=== PATIENT | female | born 1975 | race Caucasian/White ===

== ENCOUNTER → 2017-01-13 | Outpatient (CLI) | payer BC ==
[2017-01-13 09:45] LABS: BASOPHILS # (AUTO) 0.1 X10^3/uL (0.0-0.1); EOSINOPHILS # (AUTO) 0.1 x10^3/uL (0.0-0.2); HEMATOCRIT 40.9 % (36.0-47.0); HEMOGLOBIN 13.6 g/dL (12.0-16.0); LYMPHOCYTES # (AUTO) 2.4 X10^3/uL (1.3-2.9); LYMPHOCYTES % (AUTO) 42.2 % (21.0-51.0); MEAN CORPUSCULAR HGB CONC 33.2 g/dL (33.0-35.0); MEAN CORPUSCULAR VOLUME 90.4 fL (80.0-100.0); MEAN PLATELET VOLUME 9.2 fL (7.4-11.0); MONOCYTES # (AUTO) 0.4 x10^3/uL (0.3-0.8); MONOCYTES % (AUTO) 6.1 % (0.0-13.0); NEUTROPHILS # (AUTO) 2.8 x10^3/uL (2.2-4.8); NEUTROPHILS % (AUTO) 48.7 % (42.0-75.0); PLATELET COUNT 292 X10^3/uL (150.0-450.0); RED BLOOD COUNT 4.53 X10^6/uL (3.5-5.4); WHITE BLOOD COUNT 5.8 X10^3/uL (3.6-10.0)
[2017-01-13 10:09] LABS: ALANINE AMINOTRANSFERASE 31 Units/L (12-78); ALBUMIN 3.9 g/dL (3.4-5.0); ALKALINE PHOSPHATASE 69 Units/L (46-116); ASPARTATE AMINO TRANSFERASE 18 Units/L (15-37); BLOOD UREA NITROGEN 10 mg/dL (7-18); CALCIUM 8.9 mg/dL (8.5-10.1); CARBON DIOXIDE 29.5 mmol/L (21-32); CHLORIDE 108 mmol/L (98-107); CHOL/HDL RATIO 4.6 (0.0-5.0); CHOLESTEROL 224 mg/dL (0-200); CREATININE 0.98 mg/dL (0.55-1.02); GLUCOSE 94 mg/dL (65-99); HDL CHOLESTEROL 49 mg/dL (40-60); SODIUM 144 mmol/L (136-145); T4 (THYROXINE) 9.9 ug/dL (4.7-13.3); TOTAL PROTEIN 7.4 g/dL (6.4-8.2); TRIGLYCERIDES 117 mg/dL (0-150); TSH (3RD GENERATION) 1.653 uIU/mL (0.358-3.74); eGFR BLACK RACES > 60 (>60); eGFR NON BLACK RACES > 60 (>60)
[2017-01-18 07:18] LABS: T3 TOTAL 117 ng/dL (80-200)
[2017-01-18 07:19] LABS: VITAMIN D 25 OH 50 ng/mL (30-80)
== END ==
LOC: LAB 09:10
PROVIDERS: ATTEND Nurse Practitioner Family
DX: E03.8 Other specified hypothyroidism (principal); E56.8 Deficiency of other vitamins; Z91.89 Other specified personal risk factors, not elsewhere classified
CPT/HCPCS: 36415; 80053; 80061; 82306; 84436; 84443; 84480; 85025

== ENCOUNTER → 2017-02-12 | Outpatient (CLI) | payer BC ==
[2017-02-12 09:51] LABS: C-REACTIVE PROTEIN 2.8 mg/L (0-3.0); URIC ACID 3.6 mg/dL (2.6-6.0)
--- NOTE | 2017-02-12 10:25 | RAD ---
HISTORY: Right lateral foot pain, nontraumatic Study: Right foot three view Comparison: None Findings: No acute cortical disruption or dislocation can be identified. No significant soft tissue swelling or injury can be seen. The visualized portions of the talus and calcaneus are unremarkable. The jd nts are normal. IMPRESSION: 1. Negative exam. Reported By:
== END ==
LOC: RAD 09:06
PROVIDERS: ATTEND Nurse Practitioner Family
DX: M79.671 Pain in right foot (principal); M79.672 Pain in left foot
CPT/HCPCS: 36415; 73630; 84550; 85652; 86140

== ENCOUNTER 2021-06-12 11:40 | Inpatient (IN) ==
[2021-06-12 11:46] VITALS: BMI 29.2
[2021-06-12] MEDS ORDERED: ZOFRAN INJ 4 MG VIAL IVP ONE (12:23)
[2021-06-12] MEDS ORDERED: NS 1000 ML 1,000 ML IV ONE (12:23)
--- NOTE | 2021-06-12 12:23 | DR.GENAD ---
HPI Time Seen Time Seen by Provider: 06/12/21 11:54 PCP Primary Care Physician: [facility] Complaint/Symptoms Chief Complaint Doctors Comments: 46 y/o female presents with facial swelling. Started wtih a pimple of the R face/cheek region. Steadily worsened. Having increased swelling of the right cheek. + constant pain, dull, does not radiate. Nothing makes it better, nothing makes it worse. No fever, chills. Having sinus congestion, pressure. Has been nauseous. No vomiting or diarrhea. No cough. Having some body aches. Chief Complaint:: Pt c/o right sided facial swelling. She states she had a pimple on that side of her face. She also c/o bodyaches and sinus pressure. Self Treatment fo Chief Complaint: Goody Powder COVID-19 Coronavirus risk:travel/contact w/high risk person: No Has patient experienced Coronavirus symptoms: No Nurses notes reviewed Nurses Notes Review: Yes Source History Provided: Patient Mode of Arrival Mode of Arrival: Ambulatory Timing Onset of Chief Complaint: 06/11/21 PMH PMH Past Medical History: Yes Past Medical History: Anemia Past Medical History Comment: Fibromyalgia Past Surgical History: Yes Surgical History: , Cholecystectomy, [employer] Surgery and Hysterectomy Family History History of Family Medical Conditions: Yes Family Medical History: Diabetes Mellitus and Hypertension Social History Does patient currently use any type of tobacco product: No Have you used tobacco products in the last 12 months: No Type of Tobacco Use: None Does any household member use tobacco: No Alcohol Use: None Do you use any recreational Drugs:: No Lives With: Family Lives Where: Home Travel Risk Coronavirus risk:travel/contact w/high risk person: No Has patient experienced Coronavirus symptoms: No Infectious screening In the last 2 months have you had wt loss of >10#?: NO Have you had fever, night sweats or hemotysis?: No Have you traveled outside the country in the last 6 months?: No Isolation: Standard ROS Review of Systems Constitutional: No Symptoms Reported Eyes: No Symptoms Reported ENTM: Nose Congestion; negative Mouth Pain and Tooth/Dental Pain Respiratoy: No Symptoms Reported Cardiovascular: No Symptoms Reported Gastrointestinal/Abdominal: No Symptoms Reported Genitourinary: No Symptoms Reported Neurological: No Symptoms Reported Musculoskeletal: No Symptoms Reported Integumentary: No Symptoms Reported Hematologic/Lymphatic: No Symptoms Reported Endocrine: No Symptoms Reported Psychiatric: No Symptoms Reported All Other Systems: Reviewed and Negative PE Vital Signs Vitals: Temperature 97.9 F Pulse Rate 127 Respiratory Rate 16 Blood Pressure 131/75 O2 Sat by Pulse Oximetry 100 General Limitations: No Limitations General Appearance: Alert and In No Apparent Distress Eyes Eye exam: Normal Appearance, PERRL and EOMI ENT ENT Exam: Normal Oropharynx, Mucous Membranes Moist, TM's Normal Bilaterally and Other (+ right malar swelling, with tenderness, with 3 cm round induration of center, minimal erythema. No fluctuance.) Nose Exam: Normal Nose Exam Throat Exam: Normal Inspection Neck Neck Exam: Normal Inspection and Full ROM; negative Meningismus Chest Chest Inspection: Normal Inspection Respiratory Respiratory Exam: Normal Lung Sounds Bilat; negative Accessory Muscle Use and Respiratory Distress Respiratory Exam: Bilateral: Clear to Auscultation Cardiovascular Cardiovascular Exam: Regular Rate, Normal Rhythm and Normal Heart Sounds Abdominal Exam Abdominal Exam: Normal Inspection, Normal Bowel Sounds and Soft; negative Tenderness Extremities Extremities Exam: Normal Inspection and Full ROM; negative Tenderness and Edema Back Back Exam: Normal Inspection and Full ROM Neurologic Neurological Exam: Alert, Oriented X3 and CN II-XII Intact; negative Motor Sensory Deficit Psychiatric Psychiatric Exam: Normal Affect Skin Skin Exam: Warm and Dry MDM Differential Diagnosis Differential Diagnosis: facial cellulitis/abscess, dental abscess COURSE Treatment Treatment: 46 y.o female with rapidly worsening R facial swelling. W/u initiated. Labs overall acceptable, slight bump in WBC. CT of facial region with IV contrast shows R facial cellulitis, no abscess. Discussed with Dr. Gustafson, covering hospitalist, accepts the admission. ROR Labs Reviewed Laboratory Results Reviewed?: Yes Result Diagrams: 06/12/21 12:43 06/12/21 12:43 Laboratory: WBC 11.6 X10^3/uL (3.6-10.0) H 06/12/21 12:43 RBC 4.38 X10^6/uL (3.5-5.4) 06/12/21 12:43 Hgb 13.1 g/dL (12.0-16.0) 06/12/21 12:43 Hct 39.1 % (36.0-47.0) 06/12/21 12:43 MCV 89.3 fL (80.0-100.0) 06/12/21 12:43 MCH 30.0 pg (27.0-34.0) 06/12/21 12:43 MCHC 33.6 g/dL (33.0-35.0) 06/12/21 12:43 RDW 14.1 % (11.6-16.5) 06/12/21 12:43 Plt Count 273 X10^3/uL (150.0-450.0) 06/12/21 12:43 MPV 8.3 fL (7.4-11.0) 06/12/21 12:43 Neut % (Auto) 75.4 % (42.0-75.0) H 06/12/21 12:43 Lymph % (Auto) 16.8 % (21.0-51.0) L 06/12/21 12:43 [place] % (Auto) 6.7 % (0.0-13.0) 06/12/21 12:43 Eos % (Auto) 0.5 % (0.9-2.9) L 06/12/21 12:43 Baso % (Auto) 0.6 % (0.2-1.0) 06/12/21 12:43 Neut # (Auto) 8.7 x10^3/uL (2.2-4.8) H 06/12/21 12:43 Lymph # (Auto) 1.9 X10^3/uL (1.3-2.9) 06/12/21 12:43 [place] # (Auto) 0.8 x10^3/uL (0.3-0.8) 06/12/21 12:43 Eos # (Auto) 0.1 x10^3/uL (0.0-0.2) 06/12/21 12:43 Baso # (Auto) 0.1 X10^3/uL (0.0-0.1) 06/12/21 12:43 Absolute Nucleated RBC 0.0 /100WBC 06/12/21 12:43 Sodium 143 mmol/L (136-145) 06/12/21 12:43 Corrected Sodium TNP 06/12/21 12:43 Potassium 3.5 mmol/L (3.5-5.1) 06/12/21 12:43 Chloride 107 mmol/L (98-107) 06/12/21 12:43 Carbon Dioxide 26.9 mmol/L (21-32) 06/12/21 12:43 BUN 6 mg/dL (7-18) L 06/12/21 12:43 Creatinine 0.90 mg/dL (0.55-1.02) 06/12/21 12:43 Est GFR (MDRD) Af Amer > 60 (>60) 06/12/21 12:43 Est GFR (MDRD) Non-Af > 60 (>60) 06/12/21 12:43 Glucose 98 mg/dL (65-99) 06/12/21 12:43 Lactic Acid 1.0 mmol/L (0.4-2.0) 06/12/21 12:43 Calcium 8.8 mg/dL (8.5-10.1) 06/12/21 12:43 Corrected Calcium TNP 06/12/21 12:43 Total Bilirubin 0.20 mg/dL (0.2-1.0) 06/12/21 12:43 AST 18 Units/L (15-37) 06/12/21 12:43 ALT 28 Units/L (12-78) 06/12/21 12:43 Alkaline Phosphatase 84 Units/L (46-116) 06/12/21 12:43 Total Protein 7.0 g/dL (6.4-8.2) 06/12/21 12:43 Albumin 3.4 g/dL (3.4-5.0) 06/12/21 12:43 Globulin 3.6 g/dL (2.5-4.5) 06/12/21 12:43 Albumin/Globulin Ratio 0.9 Ratio (1.1-2.1) L 06/12/21 12:43 XRAY XRAY Interpreted by: Radiologist X-ray Results: Facial CT -+ R facial cellulitis Opioid Opioid Risk Tool Age (Boyd box if 16-45): No History of Preadolescent Sexual Abuse: No Total: 0 Total Score Risk Category: Low Risk Copyright: Keagan LIN predicting aberrant behaviors Diagnosis Discharge Problem: Cellulitis of face
[2021-06-12] MEDS ORDERED: ZOSYN VIAL 3.375 GRAMS 3.375 G in NS 100 ML IV + SPIKE MINIBAG* 100 ML IV ONE (12:25)
[2021-06-12] MEDS ORDERED: NS 100 ML IV + SPIKE MINIBAG* 100 ML IV ONE (12:33)
[2021-06-12] MEDS ORDERED: ZOFRAN INJ 4 MG VIAL ONE (12:33)
[2021-06-12] MEDS ORDERED: ZOSYN VIAL 3.375 GRAMS IV ONE (12:33)
[2021-06-12] MEDS ORDERED: NS 1000 ML 1,000 ML ONE (12:34)
[2021-06-12 13:16] LABS: BASOPHILS # (AUTO) 0.1 X10^3/uL (0.0-0.1); BASOPHILS % (AUTO) 0.6 % (0.2-1.0); EOSINOPHILS # (AUTO) 0.1 x10^3/uL (0.0-0.2); EOSINOPHILS % (AUTO) 0.5 % (0.9-2.9); HEMATOCRIT 39.1 % (36.0-47.0); HEMOGLOBIN 13.1 g/dL (12.0-16.0); LYMPHOCYTES # (AUTO) 1.9 X10^3/uL (1.3-2.9); LYMPHOCYTES % (AUTO) 16.8 % (21.0-51.0); MEAN CORPUSCULAR HGB CONC 33.6 g/dL (33.0-35.0); MEAN CORPUSCULAR VOLUME 89.3 fL (80.0-100.0); MEAN PLATELET VOLUME 8.3 fL (7.4-11.0); MONOCYTES # (AUTO) 0.8 x10^3/uL (0.3-0.8); MONOCYTES % (AUTO) 6.7 % (0.0-13.0); NEUTROPHILS # (AUTO) 8.7 x10^3/uL (2.2-4.8); NEUTROPHILS % (AUTO) 75.4 % (42.0-75.0); PLATELET COUNT 273 X10^3/uL (150.0-450.0); RED BLOOD COUNT 4.38 X10^6/uL (3.5-5.4); RED CELL DISTRIBUTION WIDTH 14.1 % (11.6-16.5); WHITE BLOOD COUNT 11.6 X10^3/uL (3.6-10.0)
[2021-06-12 13:43] LABS: ALANINE AMINOTRANSFERASE 28 Units/L (12-78); ALBUMIN 3.4 g/dL (3.4-5.0); ALKALINE PHOSPHATASE 84 Units/L (46-116); ASPARTATE AMINO TRANSFERASE 18 Units/L (15-37); BLOOD UREA NITROGEN 6 mg/dL (7-18); CALCIUM 8.8 mg/dL (8.5-10.1); CARBON DIOXIDE 26.9 mmol/L (21-32); CHLORIDE 107 mmol/L (98-107); SODIUM 143 mmol/L (136-145); eGFR NON BLACK RACES > 60 (>60)
[2021-06-12] MEDS ORDERED: MORPHINE SULFATE INJ 4 MG IVP ONE (13:57)
[2021-06-12] MEDS ORDERED: MORPHINE SULFATE INJ 4 MG ONE (13:59)
--- NOTE | 2021-06-12 14:02 | CT ---
HISTORYRIGHT CHEEK SWELLING/ TENDERNESS, C/W CELLULITISSTUDYFACIAL WITH CONCOMPARISONNone.TECHNIQUEMultiple axial images of the facial structures were obtained from the mandible to superior portions of the orbits. Sagital and Coronal reformats were created. Dose reduction techniques including Automated Exposure Control (AEC) and adjustment of mA and kV were utilized. Exam performed with contrast.FINDINGSStreak artifact from dental amalgam limits evaluation.Facial bones: No acute facial bone fracture.Paranasal sinuses:Clear.Globes:Intact. No retrobulbar swelling or hematoma.Soft tissues:There is moderate soft tissue swelling to the right cheek image 32 series 9. No abscess is identified. The nasal cavity, nasopharynx, oropharynx, oral cavity, parapharyngeal space, and retropharyngeal space appear benign. Visualized hypopharynx and larynx appear benign. No pathologic adenopathy. The parotid glands and submandibular glands appear normal. There is thickening of the right platysma muscle.IMPRESSIONModerate subcutaneous fat stranding in the right cheek consistent with cellulitis. No identified soft tissue abscess. No retrobulbar or fat stranding.Electronically signed by: Ross Faust (Jun 12, 2021 14:00:20)
[2021-06-12] MEDS: ZOSYN VIAL 3.375 GRAMS 3.375 G in NS 100 ML IV + SPIKE MINIBAG* 100 ML IV SCH ×2 (17:03→21:20)
[2021-06-12] MEDS: NS 1000 ML 1,000 ML IV SCH (17:35)
[2021-06-12] MEDS: MORPHINE SULFATE INJ 4 MG IVP PRN (17:55)
[2021-06-12] MEDS: DESYREL PO SCH (20:49)
[2021-06-12] MEDS ORDERED: TORADOL 30 MG VIAL IVP ONE (21:14)
[2021-06-12] MEDS: ZYVOX 600MG IV 600 MG/300 ML BAG IV SCH (22:31)
[2021-06-13] MEDS: MORPHINE SULFATE INJ 4 MG IVP PRN (05:10)
[2021-06-13] MEDS: NS 1000 ML 1,000 ML IV SCH ×4 (05:10→21:11)
[2021-06-13] MEDS: ZOSYN VIAL 4.5 GRAMS 4.5 G in NS 100 ML IV + SPIKE MINIBAG* 100 ML IV SCH ×3 (05:10→22:10)
[2021-06-13 06:13] LABS: BASOPHILS % (AUTO) 0.2 % (0.2-1.0); EOSINOPHILS # (AUTO) 0.1 x10^3/uL (0.0-0.2); EOSINOPHILS % (AUTO) 0.9 % (0.9-2.9); HEMOGLOBIN 12.5 g/dL (12.0-16.0); LYMPHOCYTES # (AUTO) 2.2 X10^3/uL (1.3-2.9); LYMPHOCYTES % (AUTO) 17.5 % (21.0-51.0); MEAN CORPUSCULAR HEMOGLOBIN 30.1 pg (27.0-34.0); MEAN CORPUSCULAR HGB CONC 33.8 g/dL (33.0-35.0); MEAN CORPUSCULAR VOLUME 89.1 fL (80.0-100.0); MEAN PLATELET VOLUME 8.3 fL (7.4-11.0); MONOCYTES # (AUTO) 0.9 x10^3/uL (0.3-0.8); MONOCYTES % (AUTO) 7.2 % (0.0-13.0); NEUTROPHILS # (AUTO) 9.4 x10^3/uL (2.2-4.8); NEUTROPHILS % (AUTO) 74.2 % (42.0-75.0); PLATELET COUNT 265 X10^3/uL (150.0-450.0); RED BLOOD COUNT 4.15 X10^6/uL (3.5-5.4); RED CELL DISTRIBUTION WIDTH 14.2 % (11.6-16.5); WHITE BLOOD COUNT 12.7 X10^3/uL (3.6-10.0)
[2021-06-13 06:28] LABS: ALANINE AMINOTRANSFERASE 78 Units/L (12-78); ALKALINE PHOSPHATASE 109 Units/L (46-116); ASPARTATE AMINO TRANSFERASE 58 Units/L (15-37); BLOOD UREA NITROGEN 6 mg/dL (7-18); CALCIUM 8.5 mg/dL (8.5-10.1); CARBON DIOXIDE 27.9 mmol/L (21-32); CHLORIDE 106 mmol/L (98-107); COR CA(FOR HYPOALB) 9.3 mg/dL (8.5-10.1); CREATININE 0.89 mg/dL (0.55-1.02); SODIUM 142 mmol/L (136-145); TOTAL PROTEIN 6.4 g/dL (6.4-8.2); eGFR NON BLACK RACES > 60 (>60)
[2021-06-13] MEDS ORDERED: K-RIDER 10 MEQ/NS 100 ML 10 MEQ/100 ML BAG IV PRN (06:47)
[2021-06-13] MEDS ORDERED: KLOR-CON PO PRN (06:47)
[2021-06-13] MEDS ORDERED: POTASSIUM CHL 40 MEQ/NS 0.45% 500 ML IV PRN (06:47)
[2021-06-13] MEDS ORDERED: MICRO K EXTEN CAP 10 MEQ PO PRN (06:47)
[2021-06-13] MEDS ORDERED: POTASSIUM CHL 60 MEQ/NS 0.45% 500 ML IV PRN (06:47)
[2021-06-13] MEDS ORDERED: K-DUR TAB 20 MEQ PO PRN (06:47)
[2021-06-13] MEDS ORDERED: POTASSIUM CHLORIDE LIQ 20 MEQ UDC PO PRN (06:47)
[2021-06-13] MEDS: CYMBALTA PO SCH (08:53)
[2021-06-13] MEDS: PriLOSEC PO SCH (08:53)
[2021-06-13] MEDS: ZYVOX 600MG IV 600 MG/300 ML BAG IV SCH ×2 (08:53→21:11)
[2021-06-13] MEDS: MAGNESIUM SULFATE 1 GRAM/100 mL PREMIX 1 G/100 ML BAG IV PRN ×2 (10:15→11:24)
[2021-06-13] MEDS: NORCO 7.5/325 MG TAB PO PRN (12:25)
[2021-06-13] MEDS ORDERED: TORADOL 30 MG VIAL IVP ONE (13:44)
[2021-06-13] MEDS: DESYREL PO SCH (21:11)
[2021-06-13] MEDS: TORADOL 15 MG VIAL IVP PRN (23:45)
[2021-06-14] MEDS: NS 1000 ML 1,000 ML IV SCH ×3 (01:14→17:01)
[2021-06-14] MEDS: MORPHINE SULFATE INJ 4 MG IVP PRN ×2 (05:00→11:00)
[2021-06-14] MEDS: ZOSYN VIAL 4.5 GRAMS 4.5 G in NS 100 ML IV + SPIKE MINIBAG* 100 ML IV SCH ×3 (05:10→21:25)
[2021-06-14] MEDS: TORADOL 15 MG VIAL IVP PRN ×3 (06:40→22:25)
[2021-06-14 06:57] LABS: BASOPHILS % (AUTO) 0.4 % (0.2-1.0); EOSINOPHILS # (AUTO) 0.2 x10^3/uL (0.0-0.2); EOSINOPHILS % (AUTO) 1.7 % (0.9-2.9); HEMOGLOBIN 11.5 g/dL (12.0-16.0); LYMPHOCYTES # (AUTO) 1.9 X10^3/uL (1.3-2.9); LYMPHOCYTES % (AUTO) 18.6 % (21.0-51.0); MEAN CORPUSCULAR HEMOGLOBIN 30.1 pg (27.0-34.0); MEAN CORPUSCULAR HGB CONC 33.9 g/dL (33.0-35.0); MEAN CORPUSCULAR VOLUME 88.8 fL (80.0-100.0); MEAN PLATELET VOLUME 8.5 fL (7.4-11.0); MONOCYTES # (AUTO) 0.6 x10^3/uL (0.3-0.8); MONOCYTES % (AUTO) 5.9 % (0.0-13.0); NEUTROPHILS # (AUTO) 7.6 x10^3/uL (2.2-4.8); NEUTROPHILS % (AUTO) 73.4 % (42.0-75.0); PLATELET COUNT 237 X10^3/uL (150.0-450.0); RED BLOOD COUNT 3.83 X10^6/uL (3.5-5.4); RED CELL DISTRIBUTION WIDTH 14.4 % (11.6-16.5); WHITE BLOOD COUNT 10.4 X10^3/uL (3.6-10.0)
[2021-06-14 07:17] LABS: ALANINE AMINOTRANSFERASE 44 Units/L (12-78); ALBUMIN 2.6 g/dL (3.4-5.0); ALKALINE PHOSPHATASE 92 Units/L (46-116); ASPARTATE AMINO TRANSFERASE 22 Units/L (15-37); BLOOD UREA NITROGEN 5 mg/dL (7-18); CALCIUM 8.2 mg/dL (8.5-10.1); CARBON DIOXIDE 24.3 mmol/L (21-32); CHLORIDE 109 mmol/L (98-107); COR CA(FOR HYPOALB) 9.3 mg/dL (8.5-10.1); MAGNESIUM 2.1 mg/dL (1.7-2.9); SODIUM 142 mmol/L (136-145); TOTAL PROTEIN 5.7 g/dL (6.4-8.2); eGFR NON BLACK RACES > 60 (>60)
[2021-06-14] MEDS: CYMBALTA PO SCH (09:09)
[2021-06-14] MEDS: ZYVOX 600MG IV 600 MG/300 ML BAG IV SCH ×2 (09:10→20:49)
[2021-06-14] MEDS: PriLOSEC PO SCH (09:10)
[2021-06-14] MEDS: NORCO 7.5/325 MG TAB PO PRN (10:13)
[2021-06-14] MEDS: SOLU-Medrol 40 MG VIAL IVP SCH ×3 (10:55→21:25)
--- NOTE | 2021-06-14 11:16 | CT ---
HISTORYfacial cellulitisSTUDYSINUS W/O [id number] axial images of the paranasal sinuses were obtained. Dose reduction techniques including Automated Exposure Control (AEC) and adjustment of mA and kV were utilized.FINDINGSRight facial soft tissue swelling is again seen involving the cheek and preseptal periorbital soft tissues and extending inferiorly into the superior neck with thickening of the right platysma. No discrete drainable fluid collection is identified however there are developing nodular densities in the subcutaneous fat just below the level of the zygomatic arch (axial images 30-44). Paranasal sinuses remain clear. Mastoid air cells and middle ears aerated. No acute osseous finding. No definite postseptal orbital stranding or fluid collection. Anatomic lens positions. Globes appear intact.IMPRESSIONWorsening right facial cellulitis with possible developing phlegmon without drainable fluid collection yet seen. Unclear etiology. Inflammatory changes involve the preseptal right orbit without definite postseptal involvement evident.Electronically signed by: Emory Jason (Jun 14, 2021 11:14:29)
[2021-06-14] MEDS: ZOFRAN INJ 4 MG VIAL IVP PRN ×2 (12:05→20:55)
[2021-06-14] MEDS: DESYREL PO SCH (20:49)
[2021-06-15] MEDS: NS 1000 ML 1,000 ML IV SCH ×4 (03:48→17:13)
[2021-06-15] MEDS: MORPHINE SULFATE INJ 4 MG IVP PRN ×2 (06:00→20:31)
[2021-06-15] MEDS: SOLU-Medrol 40 MG VIAL IVP SCH ×3 (06:06→21:00)
[2021-06-15] MEDS: ZOSYN VIAL 4.5 GRAMS 4.5 G in NS 100 ML IV + SPIKE MINIBAG* 100 ML IV SCH ×3 (06:06→21:00)
[2021-06-15 06:38] LABS: BASOPHILS % (AUTO) 0.1 % (0.2-1.0); HEMATOCRIT 36.2 % (36.0-47.0); HEMOGLOBIN 12.1 g/dL (12.0-16.0); LYMPHOCYTES % (AUTO) 9.9 % (21.0-51.0); MEAN CORPUSCULAR HEMOGLOBIN 29.6 pg (27.0-34.0); MEAN CORPUSCULAR HGB CONC 33.5 g/dL (33.0-35.0); MEAN CORPUSCULAR VOLUME 88.3 fL (80.0-100.0); MEAN PLATELET VOLUME 8.8 fL (7.4-11.0); MONOCYTES # (AUTO) 0.2 x10^3/uL (0.3-0.8); MONOCYTES % (AUTO) 1.8 % (0.0-13.0); NEUTROPHILS # (AUTO) 8.6 x10^3/uL (2.2-4.8); NEUTROPHILS % (AUTO) 88.2 % (42.0-75.0); PLATELET COUNT 293 X10^3/uL (150.0-450.0); WHITE BLOOD COUNT 9.7 X10^3/uL (3.6-10.0)
[2021-06-15 06:56] LABS: ALANINE AMINOTRANSFERASE 51 Units/L (12-78); ALBUMIN 2.9 g/dL (3.4-5.0); ALKALINE PHOSPHATASE 107 Units/L (46-116); ASPARTATE AMINO TRANSFERASE 22 Units/L (15-37); BLOOD UREA NITROGEN 6 mg/dL (7-18); CALCIUM 8.8 mg/dL (8.5-10.1); CARBON DIOXIDE 24.7 mmol/L (21-32); CHLORIDE 110 mmol/L (98-107); COR CA(FOR HYPOALB) 9.7 mg/dL (8.5-10.1); COR NA(FOR HYPERGLY) 144 mmol/L (136-145); CREATININE 0.79 mg/dL (0.55-1.02); SODIUM 143 mmol/L (136-145); TOTAL PROTEIN 6.6 g/dL (6.4-8.2); eGFR NON BLACK RACES > 60 (>60)
[2021-06-15] MEDS: CYMBALTA PO SCH (09:20)
[2021-06-15] MEDS: PriLOSEC PO SCH (09:20)
[2021-06-15] MEDS: ZYVOX 600MG IV 600 MG/300 ML BAG IV SCH ×2 (09:20→20:22)
--- NOTE | 2021-06-15 15:28 | PCM.PROG ---
Progress Note - Progress Note for Day of Date of Exam: 06/14/21 - Subjective Subjective: IS A 46 YEAR OLD PATIENT OF . SHE WAS ADMITTED ON 06/12 FOR TREATMENT OF FACIAL CELLULITIS. PATIENT DESCRIBES HAVING A PIMPLE TO THE RIGHT SIDE OF FACE/CHEEK. AFTER A FEW DAYS, PATIENT BEGAN TO HAVE RIGHT SIDED FACIAL SWELLING, BODY ACHES, AND SINUS PRESSURE. SHE DENIES FEVER OR CHILLS. TODAY, PATIENT IS ALERT AND ORIENTED, SITTING UP IN BED ON MORNING ROUNDS. SHE CONTINUES TO HAVE SWELLING AND ERYTHEMA TO THE RIGHT SIDE OF FACE. THERE IS SOME SWELLING DOWN INTO NECK AREA WELL. SHE CONTINUES TO HAVE SINUS PRESSURE. HER VITALS THIS MORNING ARE: 98.5-93-20-96%-112/64. LABS WERE OBTAINED. ABNORMAL LAB VALUES INCLUDE THE FOLLOWING: WBC 10.4, HGB 11.5, HCT 34.0, CHLORIDE 109, BUN 5, CALCIUM 8.2, TOTAL PROTEIN 5.7, ALBUMIN 2.6. WE WILL CONTINUE WITH HER IV FLUIDS, IV ANTIBIOTICS, POTASSIUM PROTOCOL, AND CURRENT PLAN OF CARE TODAY. WE WILL ADD SOLU-MEDROL 40MG IV Q8H AND OBTAIN A SINUS CT. OTHERWISE, WE WILL FOLLOW UP WITH AM LABS AND CONTINUE TO MONITOR. TIME SPENT ON CLINICAL ASSESSMENT, REVIEWING LABS AND IMAGING, DECISION MAKING, AND DOCUMENTATION GREATER THAN 45 MINUTES. - Past Medical Family Social History Past Med/Fam/Surg Hx: No changes since H&P Allergies: Allergies No Known Drug Allergies Allergy (Verified 01/18/18 07:29) - Review of Systems ROS: No change since H&P - Vital Signs and I&O's Vital Signs: Temperature 97.9 F Pulse Rate [Right Brachial] 82 Pulse Rate [Left Brachial] 74 Pulse Rate 93 Respiratory Rate 18 Blood Pressure [Right Arm] 117/68 Blood Pressure [Left Arm] 130/67 Blood Pressure 113/71 O2 Sat by Pulse Oximetry 95 Intake and Output: Intake & Output 06/13/21 06/14/21 06/15/21 06/16/21 11:59 11:59 11:59 11:59 Intake Total 2339 / 2339 4306 / 4306 3508 / 3508 549 / 549 Balance 2339 / 2339 4306 / 4306 3508 / 3508 549 / 549 - Physical Exam Oriented: Normal Eyes: Normal Ear: Normal Nose: Normal Throat: Normal Respiratory: Normal Cardiovascular: Normal : Normal Auscultation: Bowel Sounds: Normal Palpation: Normal Tenderness: Normal Skin: Red (FACIAL SWELLING AND ERYTHEMA), Tender Musculoskeletal: Normal Psychiatric: Normal Mood Description: Calm Affect: Normal Speech Pattern: Clear, Appropriate - Laboratory and Diagnostics Result Diagrams: 06/15/21 05:43 06/15/21 05:43 Labs: 06/12/21 12:48 Blood Blood Culture - Preliminary 06/12/21 12:43 Blood Blood Culture - Preliminary Laboratory WBC 9.7 X10^3/uL (3.6-10.0) 06/15/21 05:43 RBC 4.10 X10^6/uL (3.5-5.4) 06/15/21 05:43 Hgb 12.1 g/dL (12.0-16.0) 06/15/21 05:43 Hct 36.2 % (36.0-47.0) 06/15/21 05:43 MCV 88.3 fL (80.0-100.0) 06/15/21 05:43 MCH 29.6 pg (27.0-34.0) 06/15/21 05:43 MCHC 33.5 g/dL (33.0-35.0) 06/15/21 05:43 RDW 14.0 % (11.6-16.5) 06/15/21 05:43 Plt Count 293 X10^3/uL (150.0-450.0) 06/15/21 05:43 MPV 8.8 fL (7.4-11.0) 06/15/21 05:43 Neut % (Auto) 88.2 % (42.0-75.0) H 06/15/21 05:43 Lymph % (Auto) 9.9 % (21.0-51.0) L 06/15/21 05:43 [place] % (Auto) 1.8 % (0.0-13.0) 06/15/21 05:43 Eos % (Auto) 0.0 % (0.9-2.9) L 06/15/21 05:43 Baso % (Auto) 0.1 % (0.2-1.0) L 06/15/21 05:43 Neut # (Auto) 8.6 x10^3/uL (2.2-4.8) H 06/15/21 05:43 Lymph # (Auto) 1.0 X10^3/uL (1.3-2.9) L 06/15/21 05:43 [place] # (Auto) 0.2 x10^3/uL (0.3-0.8) L 06/15/21 05:43 Eos # (Auto) 0.0 x10^3/uL (0.0-0.2) 06/15/21 05:43 Baso # (Auto) 0.0 X10^3/uL (0.0-0.1) 06/15/21 05:43 Absolute Nucleated RBC 0.0 /100WBC 06/15/21 05:43 Sodium 143 mmol/L (136-145) 06/15/21 05:43 Corrected Sodium 144 mmol/L (136-145) 06/15/21 05:43 Potassium 4.3 mmol/L (3.5-5.1) 06/15/21 05:43 Chloride 110 mmol/L (98-107) H 06/15/21 05:43 Carbon Dioxide 24.7 mmol/L (21-32) 06/15/21 05:43 BUN 6 mg/dL (7-18) L 06/15/21 05:43 Creatinine 0.79 mg/dL (0.55-1.02) 06/15/21 05:43 Est GFR (MDRD) Af Amer > 60 (>60) 06/15/21 05:43 Est GFR (MDRD) Non-Af > 60 (>60) 06/15/21 05:43 Glucose 129 mg/dL (65-99) H 06/15/21 05:43 Lactic Acid 1.0 mmol/L (0.4-2.0) 06/12/21 12:43 Calcium 8.8 mg/dL (8.5-10.1) 06/15/21 05:43 Corrected Calcium 9.7 mg/dL (8.5-10.1) 06/15/21 05:43 Magnesium 2.1 mg/dL (1.7-2.9) 06/14/21 05:48 Total Bilirubin 0.30 mg/dL (0.2-1.0) 06/15/21 05:43 AST 22 Units/L (15-37) 06/15/21 05:43 ALT 51 Units/L (12-78) 06/15/21 05:43 Alkaline Phosphatase 107 Units/L (46-116) 06/15/21 05:43 Total Protein 6.6 g/dL (6.4-8.2) 06/15/21 05:43 Albumin 2.9 g/dL (3.4-5.0) L 06/15/21 05:43 Globulin 3.7 g/dL (2.5-4.5) 06/15/21 05:43 Albumin/Globulin Ratio 0.8 Ratio (1.1-2.1) L 06/15/21 05:43 SARS-CoV-2 (PCR) Negative (NEGATIVE) 06/12/21 14:33 Influenza Type A (PCR) Negative (NEGATIVE) 06/12/21 14:33 Influenza Type B (PCR) Negative (NEGATIVE) 06/12/21 14:33 RSV (PCR) Negative (NEGATIVE) 06/12/21 14:33 - Plan (1) Cellulitis of face Status: Acute
--- NOTE | 2021-06-15 15:35 | PCM.PROG ---
Progress Note - Progress Note for Day of Date of Exam: 06/15/21 - Subjective Subjective: IS A 46 YEAR OLD PATIENT OF . SHE WAS ADMITTED ON 06/12 FOR TREATMENT OF FACIAL CELLULITIS. PATIENT DESCRIBES HAVING A PIMPLE TO THE RIGHT SIDE OF FACE/CHEEK. AFTER A FEW DAYS, PATIENT BEGAN TO HAVE RIGHT SIDED FACIAL SWELLING, BODY ACHES, AND SINUS PRESSURE. SHE DENIES FEVER OR CHILLS. TODAY, PATIENT IS ALERT AND ORIENTED, SITTING UP IN BED ON MORNING ROUNDS. SHE CONTINUES TO HAVE SWELLING AND ERYTHEMA TO THE RIGHT SIDE OF FACE. THERE IS SOME SWELLING DOWN INTO NECK AREA WELL. SWELLING HAS SLIGHTLY DECREASED SINCE YESTERDAY. SHE CONTINUES TO HAVE SINUS PRESSURE. HER VITALS THIS MORNING ARE: 98.1-68-18-96%-128/74. LABS WERE OBTAINED. ABNORMAL LAB VALUES INCLUDE THE FOLLOWING: CHLORIDE 110, BUN 6, GLUCOSE 129, ALBUMIN 2.9. WE OBTAINED A SINUS CT YESTERDAY. IT REVEALED: Worsening right facial cellulitis with possible developing phlegmon without drainable fluid collection yet seen. Unclear etiology. Inflammatory changes involve the preseptal right orbit without definite postseptal involvement evident. WE WILL CONTINUE WITH HER IV FLUIDS, IV ANTIBIOTICS, SOLU-MEDROL, POTASSIUM PROTOCOL, AND CURRENT PLAN OF CARE TODAY. OTHERWISE, WE WILL FOLLOW UP WITH AM LABS AND CONTINUE TO MONITOR. TIME SPENT ON CLINICAL ASSESSMENT, REVIEWING LABS AND IMAGING, DECISION MAKING, AND DOCUMENTATION GREATER THAN 45 MINUTES. - Past Medical Family Social History Past Med/Fam/Surg Hx: No changes since H&P Allergies: Allergies No Known Drug Allergies Allergy (Verified 01/18/18 07:29) - Review of Systems ROS: No change since H&P - Vital Signs and I&O's Vital Signs: Temperature 97.9 F Pulse Rate [Right Brachial] 82 Pulse Rate [Left Brachial] 74 Pulse Rate 93 Respiratory Rate 18 Blood Pressure [Right Arm] 117/68 Blood Pressure [Left Arm] 130/67 Blood Pressure 113/71 O2 Sat by Pulse Oximetry 95 Intake and Output: Intake & Output 06/13/21 06/14/21 06/15/21 06/16/21 11:59 11:59 11:59 11:59 Intake Total 2339 / 2339 4306 / 4306 3508 / 3508 1269 / 1269 Balance 2339 / 2339 4306 / 4306 3508 / 3508 1269 / 1269 - Physical Exam Oriented: Normal Eyes: Normal Ear: Normal Nose: Normal Throat: Normal Respiratory: Normal Cardiovascular: Normal : Normal Auscultation: Bowel Sounds: Normal Palpation: Normal Tenderness: Normal Skin: Red (FACIAL SWELLING AND ERYTHEMA), Tender Musculoskeletal: Normal Psychiatric: Normal Mood Description: Calm Affect: Normal Speech Pattern: Clear, Appropriate - Laboratory and Diagnostics Result Diagrams: 06/15/21 05:43 06/15/21 05:43 Labs: 06/12/21 12:48 Blood Blood Culture - Preliminary 06/12/21 12:43 Blood Blood Culture - Preliminary Laboratory WBC 9.7 X10^3/uL (3.6-10.0) 06/15/21 05:43 RBC 4.10 X10^6/uL (3.5-5.4) 06/15/21 05:43 Hgb 12.1 g/dL (12.0-16.0) 06/15/21 05:43 Hct 36.2 % (36.0-47.0) 06/15/21 05:43 MCV 88.3 fL (80.0-100.0) 06/15/21 05:43 MCH 29.6 pg (27.0-34.0) 06/15/21 05:43 MCHC 33.5 g/dL (33.0-35.0) 06/15/21 05:43 RDW 14.0 % (11.6-16.5) 06/15/21 05:43 Plt Count 293 X10^3/uL (150.0-450.0) 06/15/21 05:43 MPV 8.8 fL (7.4-11.0) 06/15/21 05:43 Neut % (Auto) 88.2 % (42.0-75.0) H 06/15/21 05:43 Lymph % (Auto) 9.9 % (21.0-51.0) L 06/15/21 05:43 [place] % (Auto) 1.8 % (0.0-13.0) 06/15/21 05:43 Eos % (Auto) 0.0 % (0.9-2.9) L 06/15/21 05:43 Baso % (Auto) 0.1 % (0.2-1.0) L 06/15/21 05:43 Neut # (Auto) 8.6 x10^3/uL (2.2-4.8) H 06/15/21 05:43 Lymph # (Auto) 1.0 X10^3/uL (1.3-2.9) L 06/15/21 05:43 [place] # (Auto) 0.2 x10^3/uL (0.3-0.8) L 06/15/21 05:43 Eos # (Auto) 0.0 x10^3/uL (0.0-0.2) 06/15/21 05:43 Baso # (Auto) 0.0 X10^3/uL (0.0-0.1) 06/15/21 05:43 Absolute Nucleated RBC 0.0 /100WBC 06/15/21 05:43 Sodium 143 mmol/L (136-145) 06/15/21 05:43 Corrected Sodium 144 mmol/L (136-145) 06/15/21 05:43 Potassium 4.3 mmol/L (3.5-5.1) 06/15/21 05:43 Chloride 110 mmol/L (98-107) H 06/15/21 05:43 Carbon Dioxide 24.7 mmol/L (21-32) 06/15/21 05:43 BUN 6 mg/dL (7-18) L 06/15/21 05:43 Creatinine 0.79 mg/dL (0.55-1.02) 06/15/21 05:43 Est GFR (MDRD) Af Amer > 60 (>60) 06/15/21 05:43 Est GFR (MDRD) Non-Af > 60 (>60) 06/15/21 05:43 Glucose 129 mg/dL (65-99) H 06/15/21 05:43 Lactic Acid 1.0 mmol/L (0.4-2.0) 06/12/21 12:43 Calcium 8.8 mg/dL (8.5-10.1) 06/15/21 05:43 Corrected Calcium 9.7 mg/dL (8.5-10.1) 06/15/21 05:43 Magnesium 2.1 mg/dL (1.7-2.9) 06/14/21 05:48 Total Bilirubin 0.30 mg/dL (0.2-1.0) 06/15/21 05:43 AST 22 Units/L (15-37) 06/15/21 05:43 ALT 51 Units/L (12-78) 06/15/21 05:43 Alkaline Phosphatase 107 Units/L (46-116) 06/15/21 05:43 Total Protein 6.6 g/dL (6.4-8.2) 06/15/21 05:43 Albumin 2.9 g/dL (3.4-5.0) L 06/15/21 05:43 Globulin 3.7 g/dL (2.5-4.5) 06/15/21 05:43 Albumin/Globulin Ratio 0.8 Ratio (1.1-2.1) L 06/15/21 05:43 SARS-CoV-2 (PCR) Negative (NEGATIVE) 06/12/21 14:33 Influenza Type A (PCR) Negative (NEGATIVE) 06/12/21 14:33 Influenza Type B (PCR) Negative (NEGATIVE) 06/12/21 14:33 RSV (PCR) Negative (NEGATIVE) 06/12/21 14:33 - Plan (1) Cellulitis of face Status: Acute
[2021-06-15] MEDS: DESYREL PO SCH (20:20)
[2021-06-16] MEDS: TORADOL 15 MG VIAL IVP PRN (02:40)
[2021-06-16] MEDS: NS 1000 ML 1,000 ML IV SCH ×4 (03:10→17:21)
[2021-06-16] MEDS: ZOSYN VIAL 4.5 GRAMS 4.5 G in NS 100 ML IV + SPIKE MINIBAG* 100 ML IV SCH ×3 (05:00→21:00)
[2021-06-16] MEDS: SOLU-Medrol 40 MG VIAL IVP SCH ×3 (05:00→22:45)
[2021-06-16 05:43] LABS: BASOPHILS % (AUTO) 0.3 % (0.2-1.0); EOSINOPHILS % (AUTO) 0.1 % (0.9-2.9); HEMOGLOBIN 11.1 g/dL (12.0-16.0); LYMPHOCYTES # (AUTO) 1.4 X10^3/uL (1.3-2.9); LYMPHOCYTES % (AUTO) 11.6 % (21.0-51.0); MEAN CORPUSCULAR HEMOGLOBIN 29.8 pg (27.0-34.0); MEAN CORPUSCULAR HGB CONC 33.7 g/dL (33.0-35.0); MEAN CORPUSCULAR VOLUME 88.5 fL (80.0-100.0); MEAN PLATELET VOLUME 8.6 fL (7.4-11.0); MONOCYTES # (AUTO) 0.3 x10^3/uL (0.3-0.8); MONOCYTES % (AUTO) 2.8 % (0.0-13.0); NEUTROPHILS % (AUTO) 85.2 % (42.0-75.0); PLATELET COUNT 335 X10^3/uL (150.0-450.0); RED BLOOD COUNT 3.73 X10^6/uL (3.5-5.4); RED CELL DISTRIBUTION WIDTH 13.9 % (11.6-16.5); WHITE BLOOD COUNT 11.7 X10^3/uL (3.6-10.0)
[2021-06-16 05:53] LABS: ALANINE AMINOTRANSFERASE 39 Units/L (12-78); ALBUMIN 2.7 g/dL (3.4-5.0); ALKALINE PHOSPHATASE 86 Units/L (46-116); ASPARTATE AMINO TRANSFERASE 15 Units/L (15-37); BLOOD UREA NITROGEN 9 mg/dL (7-18); CALCIUM 8.6 mg/dL (8.5-10.1); CARBON DIOXIDE 25.6 mmol/L (21-32); CHLORIDE 110 mmol/L (98-107); COR CA(FOR HYPOALB) 9.6 mg/dL (8.5-10.1); COR NA(FOR HYPERGLY) 144 mmol/L (136-145); CREATININE 0.88 mg/dL (0.55-1.02); SODIUM 143 mmol/L (136-145); eGFR NON BLACK RACES > 60 (>60)
[2021-06-16] MEDS: CYMBALTA PO SCH (09:13)
[2021-06-16] MEDS: PriLOSEC PO SCH (09:13)
[2021-06-16] MEDS: ZYVOX 600MG IV 600 MG/300 ML BAG IV SCH ×2 (09:14→22:42)
[2021-06-16] MEDS: MORPHINE SULFATE INJ 4 MG IVP PRN ×2 (11:02→22:04)
--- NOTE | 2021-06-16 21:17 | PCM.PROG ---
Progress Note - Subjective Subjective: IS A 46 YEAR OLD PATIENT WHO WAS ADMITTED ON 06/12 FOR TREATMENT OF FACIAL CELLULITIS. PATIENT DESCRIBES HAVING A PIMPLE TO THE RIGHT SIDE OF FACE/CHEEK. AFTER A FEW DAYS, PATIENT BEGAN TO HAVE RIGHT SIDED FACIAL SWELLING, BODY ACHES, AND SINUS PRESSURE. SHE DENIES FEVER OR CHILLS. TODAY, PATIENT IS ALERT AND ORIENTED, SITTING UP IN BED ON MORNING ROUNDS. SHE CONTINUES TO HAVE SWELLING AND ERYTHEMA TO THE RIGHT SIDE OF FACE WITH MUCH IMPROVEMENT FROM PREVIOUS. WE WILL CONTINUE IV ANTIBIOTICS, SOLU-MEDROL, POTASSIUM PROTOCOL, AND CURRENT PLAN OF CARE TODAY. OTHERWISE, WE WILL FOLLOW UP WITH AM LABS AND CONTINUE TO MONITOR. TIME SPENT ON CLINICAL ASSESSMENT, REVIEW ING LABS AND IMAGING, DECISION MAKING, AND DOCUMENTATION GREATER THAN 45 MINUTES. - Past Medical Family Social History Past Med/Fam/Surg Hx: No changes since H&P Allergies: Allergies No Known Drug Allergies Allergy (Verified 01/18/18 07:29) - Review of Systems ROS: No change since H&P - Vital Signs and I&O's Vital Signs: Temperature 97.1 F Pulse Rate [Bilateral Radial] 73 Pulse Rate [Right Brachial] 59 Pulse Rate [Left Brachial] 74 Pulse Rate 93 Respiratory Rate 21 Blood Pressure [Right Arm] 144/82 Blood Pressure [Left Arm] 130/67 Blood Pressure 113/71 O2 Sat by Pulse Oximetry 96 Intake and Output: Intake & Output 06/13/21 06/14/21 06/15/21 06/16/21 23:59 23:59 23:59 23:59 Intake Total 5314 / 5314 2788 / 2788 4497 / 4497 2284 / 2284 Balance 5314 / 5314 2788 / 2788 [facility] / 4497 2284 / 2284 - Physical Exam Oriented: Normal Eyes: Normal Ear: Normal Nose: Normal Throat: Normal Respiratory: Normal Cardiovascular: Normal : Normal Auscultation: Bowel Sounds: Normal Tenderness: Normal Skin: Red (FACIAL SWELLING AND ERYTHEMA), Tender Musculoskeletal: Normal Psychiatric: Normal Mood Description: Calm Affect: Normal Speech Pattern: Clear, Appropriate - Laboratory and Diagnostics Result Diagrams: 06/16/21 04:58 06/16/21 04:58 Labs: 06/12/21 12:48 Blood Blood Culture - Preliminary 06/12/21 12:43 Blood Blood Culture - Preliminary Laboratory WBC 11.7 X10^3/uL (3.6-10.0) H 06/16/21 04:58 RBC 3.73 X10^6/uL (3.5-5.4) 06/16/21 04:58 Hgb 11.1 g/dL (12.0-16.0) L 06/16/21 04:58 Hct 33.0 % (36.0-47.0) L 06/16/21 04:58 MCV 88.5 fL (80.0-100.0) 06/16/21 04:58 MCH 29.8 pg (27.0-34.0) 06/16/21 04:58 MCHC 33.7 g/dL (33.0-35.0) 06/16/21 04:58 RDW 13.9 % (11.6-16.5) 06/16/21 04:58 Plt Count 335 X10^3/uL (150.0-450.0) 06/16/21 04:58 MPV 8.6 fL (7.4-11.0) 06/16/21 04:58 Neut % (Auto) 85.2 % (42.0-75.0) H 06/16/21 04:58 Lymph % (Auto) 11.6 % (21.0-51.0) L 06/16/21 04:58 [place] % (Auto) 2.8 % (0.0-13.0) 06/16/21 04:58 Eos % (Auto) 0.1 % (0.9-2.9) L 06/16/21 04:58 Baso % (Auto) 0.3 % (0.2-1.0) 06/16/21 04:58 Neut # (Auto) 10.0 x10^3/uL (2.2-4.8) H 06/16/21 04:58 Lymph # (Auto) 1.4 X10^3/uL (1.3-2.9) 06/16/21 04:58 [place] # (Auto) 0.3 x10^3/uL (0.3-0.8) 06/16/21 04:58 Eos # (Auto) 0.0 x10^3/uL (0.0-0.2) 06/16/21 04:58 Baso # (Auto) 0.0 X10^3/uL (0.0-0.1) 06/16/21 04:58 Absolute Nucleated RBC 0.1 /100WBC 06/16/21 04:58 Sodium 143 mmol/L (136-145) 06/16/21 04:58 Corrected Sodium 144 mmol/L (136-145) 06/16/21 04:58 Potassium 4.2 mmol/L (3.5-5.1) 06/16/21 04:58 Chloride 110 mmol/L (98-107) H 06/16/21 04:58 Carbon Dioxide 25.6 mmol/L (21-32) 06/16/21 04:58 BUN 9 mg/dL (7-18) 06/16/21 04:58 Creatinine 0.88 mg/dL (0.55-1.02) 06/16/21 04:58 Est GFR (MDRD) Af Amer > 60 (>60) 06/16/21 04:58 Est GFR (MDRD) Non-Af > 60 (>60) 06/16/21 04:58 Glucose 129 mg/dL (65-99) H 06/16/21 04:58 Lactic Acid 1.0 mmol/L (0.4-2.0) 06/12/21 12:43 Calcium 8.6 mg/dL (8.5-10.1) 06/16/21 04:58 Corrected Calcium 9.6 mg/dL (8.5-10.1) 06/16/21 04:58 Magnesium 2.1 mg/dL (1.7-2.9) 06/14/21 05:48 Total Bilirubin 0.20 mg/dL (0.2-1.0) 06/16/21 04:58 AST 15 Units/L (15-37) 06/16/21 04:58 ALT 39 Units/L (12-78) 06/16/21 04:58 Alkaline Phosphatase 86 Units/L (46-116) 06/16/21 04:58 Troponin I < 0.02 ng/mL (0-1.5) 06/16/21 14:50 Total Protein 6.0 g/dL (6.4-8.2) L 06/16/21 04:58 Albumin 2.7 g/dL (3.4-5.0) L 06/16/21 04:58 Globulin 3.3 g/dL (2.5-4.5) 06/16/21 04:58 Albumin/Globulin Ratio 0.8 Ratio (1.1-2.1) L 06/16/21 04:58 SARS-CoV-2 (PCR) Negative (NEGATIVE) 06/12/21 14:33 Influenza Type A (PCR) Negative (NEGATIVE) 06/12/21 14:33 Influenza Type B (PCR) Negative (NEGATIVE) 06/12/21 14:33 RSV (PCR) Negative (NEGATIVE) 06/12/21 14:33 - Plan (1) Facial pain, acute Status: Acute (2) Cellulitis of face Status: Acute Plan: iv ABX, CULTURES, REPEAT LABS JENARO
[2021-06-16] MEDS: DESYREL PO SCH (21:30)
[2021-06-17] MEDS: MORPHINE SULFATE INJ 4 MG IVP PRN (03:08)
[2021-06-17] MEDS: NS 1000 ML 1,000 ML IV SCH ×3 (04:28→16:56)
[2021-06-17] MEDS: ZOSYN VIAL 4.5 GRAMS 4.5 G in NS 100 ML IV + SPIKE MINIBAG* 100 ML IV SCH ×2 (05:24→13:39)
[2021-06-17] MEDS: SOLU-Medrol 40 MG VIAL IVP SCH ×2 (05:25→13:39)
[2021-06-17] MEDS: TORADOL 15 MG VIAL IVP PRN (05:25)
[2021-06-17 06:11] LABS: BASOPHILS % (AUTO) 0 % (0.2-1.0); HEMATOCRIT 35.5 % (36.0-47.0); HEMOGLOBIN 11.7 g/dL (12.0-16.0); LYMPHOCYTES # (AUTO) 1.7 X10^3/uL (1.3-2.9); LYMPHOCYTES % (AUTO) 20.5 % (21.0-51.0); MEAN CORPUSCULAR HEMOGLOBIN 29.7 pg (27.0-34.0); MEAN CORPUSCULAR HGB CONC 32.9 g/dL (33.0-35.0); MEAN CORPUSCULAR VOLUME 90.3 fL (80.0-100.0); MONOCYTES # (AUTO) 0.5 x10^3/uL (0.3-0.8); MONOCYTES % (AUTO) 6.4 % (0.0-13.0); NEUTROPHILS # (AUTO) 5.9 x10^3/uL (2.2-4.8); NEUTROPHILS % (AUTO) 73.1 % (42.0-75.0); PLATELET COUNT 358 X10^3/uL (150.0-450.0); RED BLOOD COUNT 3.93 X10^6/uL (3.5-5.4); RED CELL DISTRIBUTION WIDTH 14.3 % (11.6-16.5)
[2021-06-17 06:22] LABS: ALANINE AMINOTRANSFERASE 38 Units/L (12-78); ALBUMIN 2.7 g/dL (3.4-5.0); ALKALINE PHOSPHATASE 71 Units/L (46-116); ASPARTATE AMINO TRANSFERASE 17 Units/L (15-37); BLOOD UREA NITROGEN 11 mg/dL (7-18); CALCIUM 8.3 mg/dL (8.5-10.1); CHLORIDE 108 mmol/L (98-107); COR CA(FOR HYPOALB) 9.3 mg/dL (8.5-10.1); COR NA(FOR HYPERGLY) 141 mmol/L (136-145); CREATININE 0.81 mg/dL (0.55-1.02); SODIUM 141 mmol/L (136-145); TOTAL PROTEIN 5.9 g/dL (6.4-8.2); eGFR NON BLACK RACES > 60 (>60)
[2021-06-17] MEDS: CYMBALTA PO SCH (08:51)
[2021-06-17] MEDS: PriLOSEC PO SCH (08:52)
[2021-06-17] MEDS: ZYVOX 600MG IV 600 MG/300 ML BAG IV SCH (08:55)
[2021-06-17 15:54] VITALS: BP 154/85
== END 2021-06-17 18:15 | disposition home or self-care (01) | DRG 603 ==
LOC: ER 11:40 → MED/SURG 15:40
PROVIDERS: ADMIT Internal Medicine; ATTEND Internal Medicine
DX: G50.1 Atypical facial pain; R79.89 Other specified abnormal findings of blood chemistry; L03.211 Cellulitis of face; M79.7 Fibromyalgia; Z20.822 Contact with and (suspected) exposure to COVID-19

== ENCOUNTER 2022-07-23 10:44 | Observation (INO) ==
[2022-07-23 13:43] LABS: BASOPHILS # (AUTO) 0.1 X10^3/uL (0.0-0.1); BASOPHILS % (AUTO) 0.6 % (0.2-1.0); EOSINOPHILS % (AUTO) 0.4 % (0.9-2.9); HEMATOCRIT 43.8 % (36.0-47.0); HEMOGLOBIN 14.9 g/dL (12.0-16.0); LYMPHOCYTES # (AUTO) 2.2 X10^3/uL (1.3-2.9); LYMPHOCYTES % (AUTO) 23.3 % (21.0-51.0); MEAN CORPUSCULAR HEMOGLOBIN 30.1 pg (27.0-34.0); MEAN CORPUSCULAR VOLUME 88.7 fL (80.0-100.0); MEAN PLATELET VOLUME 8.3 fL (7.4-11.0); MONOCYTES # (AUTO) 0.7 x10^3/uL (0.3-0.8); MONOCYTES % (AUTO) 7.1 % (0.0-13.0); NEUTROPHILS # (AUTO) 6.5 x10^3/uL (2.2-4.8); NEUTROPHILS % (AUTO) 68.6 % (42.0-75.0); RED BLOOD COUNT 4.94 X10^6/uL (3.5-5.4); RED CELL DISTRIBUTION WIDTH 13.6 % (11.6-16.5); WHITE BLOOD COUNT 9.4 X10^3/uL (3.6-10.0)
[2022-07-23 14:00] LABS: ALANINE AMINOTRANSFERASE 23 Units/L (12-78); ALBUMIN 3.8 g/dL (3.4-5.0); ALKALINE PHOSPHATASE 118 Units/L (46-116); ASPARTATE AMINO TRANSFERASE 24 Units/L (15-37); BLOOD UREA NITROGEN 7 mg/dL (7-18); CALCIUM 8.6 mg/dL (8.5-10.1); CARBON DIOXIDE 31.7 mmol/L (21-32); CHLORIDE 99 mmol/L (98-107); CREATININE 1.18 mg/dL (0.55-1.02); SODIUM 136 mmol/L (136-145); TOTAL PROTEIN 7.8 g/dL (6.4-8.2); eGFR NON BLACK RACES 52 (>60)
[2022-07-23] MEDS ORDERED: PHARMACY CONSULT - VANCOMYCIN XX SCH (14:00)
[2022-07-23] MEDS: NS 1,000 ML IV 1,000 ML IV SCH (14:00)
[2022-07-23] MEDS: VANCOMYCIN IV *PREMIX 1 G/200 ML BAG 1 G/200 ML PIGGYBACK IV SCH ×2 (14:02→21:00)
[2022-07-23] MEDS: ZOSYN VIAL 3.375 GRAMS 3.375 G in NS 100 ML IV 100 ML IV SCH ×3 (14:05→21:00)
[2022-07-23] MEDS ORDERED: TYLENOL 325 MG TAB PO PRN (14:06)
[2022-07-23] MEDS ORDERED: POTASSIUM CHLORIDE LIQ 20 MEQ UDC PO PRN (14:07)
[2022-07-23] MEDS ORDERED: MICRO K EXTEN CAP 10 MEQ PO PRN (14:07)
[2022-07-23] MEDS ORDERED: MAGNESIUM SULFATE 1 GRAM/100 mL PREMIX 1 G/100 ML BAG IV PRN (14:07)
[2022-07-23] MEDS ORDERED: POTASSIUM CHL 60 MEQ/NS 0.45% 500 ML IV PRN (14:07)
[2022-07-23] MEDS ORDERED: K-RIDER 10 MEQ/NS 100 ML 10 MEQ/100 ML BAG IV PRN (14:07)
[2022-07-23] MEDS ORDERED: POTASSIUM CHL 40 MEQ/NS 0.45% 500 ML IV PRN (14:07)
[2022-07-23] MEDS ORDERED: KLOR-CON PO PRN (14:07)
[2022-07-23] MEDS: K-DUR TAB 20 MEQ PO PRN ×3 (14:17→22:25)
[2022-07-23 14:28] VITALS: BMI 31.6
[2022-07-23] MEDS: TORADOL 30 MG VIAL IVP PRN (16:23)
[2022-07-24] MEDS: TORADOL 30 MG VIAL IVP PRN ×2 (05:06→22:42)
[2022-07-24] MEDS: VANCOMYCIN IV *PREMIX 1 G/200 ML BAG 1 G/200 ML PIGGYBACK IV SCH ×2 (05:07→20:28)
[2022-07-24] MEDS: NS 1,000 ML IV 1,000 ML IV SCH ×2 (05:07→20:29)
[2022-07-24] MEDS: ZOSYN VIAL 3.375 GRAMS 3.375 G in NS 100 ML IV 100 ML IV SCH ×3 (05:07→21:11)
[2022-07-24 05:41] LABS: BASOPHILS % (AUTO) 0.8 % (0.2-1.0); EOSINOPHILS % (AUTO) 0.5 % (0.9-2.9); HEMATOCRIT 33.1 % (36.0-47.0); LYMPHOCYTES # (AUTO) 1.7 X10^3/uL (1.3-2.9); LYMPHOCYTES % (AUTO) 32.3 % (21.0-51.0); MEAN CORPUSCULAR HEMOGLOBIN 30.6 pg (27.0-34.0); MEAN CORPUSCULAR HGB CONC 34.8 g/dL (33.0-35.0); MEAN CORPUSCULAR VOLUME 87.9 fL (80.0-100.0); MEAN PLATELET VOLUME 8.2 fL (7.4-11.0); MONOCYTES # (AUTO) 0.5 x10^3/uL (0.3-0.8); NEUTROPHILS # (AUTO) 2.9 x10^3/uL (2.2-4.8); NEUTROPHILS % (AUTO) 57.4 % (42.0-75.0); RED BLOOD COUNT 3.76 X10^6/uL (3.5-5.4); RED CELL DISTRIBUTION WIDTH 13.4 % (11.6-16.5); WHITE BLOOD COUNT 5.1 X10^3/uL (3.6-10.0)
[2022-07-24 05:47] LABS: HEMOGLOBIN 11.5 g/dL (12.0-16.0)
[2022-07-24 05:59] LABS: ALANINE AMINOTRANSFERASE 18 Units/L (12-78); ALBUMIN 2.7 g/dL (3.4-5.0); ALKALINE PHOSPHATASE 87 Units/L (46-116); ASPARTATE AMINO TRANSFERASE 17 Units/L (15-37); BLOOD UREA NITROGEN 8 mg/dL (7-18); CALCIUM 7.9 mg/dL (8.5-10.1); CARBON DIOXIDE 25.6 mmol/L (21-32); CHLORIDE 107 mmol/L (98-107); COR CA(FOR HYPOALB) 8.9 mg/dL (8.5-10.1); CREATININE 1.07 mg/dL (0.55-1.02); SODIUM 139 mmol/L (136-145); TOTAL PROTEIN 5.8 g/dL (6.4-8.2); eGFR NON BLACK RACES 58 (>60)
[2022-07-24] MEDS ORDERED: PROGESTERONE MICRONIZED 100 MG PO SCH ×2 (09:00→21:00)
[2022-07-24] MEDS: CLARITIN PO SCH (09:49)
[2022-07-24] MEDS: CYMBALTA PO SCH (09:50)
[2022-07-24] MEDS: PriLOSEC PO SCH (09:50)
--- NOTE | 2022-07-24 10:56 | DR.H&P ---
H&P - History & Physical for Day of: H&P Date: 07/23/22 - Chief Complaint Chief Complaint: FACIAL ABSCESS, CELLULITIS - History of Present Illness History of Present Illness: IS A 47 YEAR OLD PATIENT OF OURS. SHE PRESENTED TO THE HOSPITAL A DIRECT ADMISSION FOR TREATMENT OF FACIAL CELLULITIS AND RIGHT CHIN ABSCESS. PATIENT REPORTS THAT SHE BEGAN HAVING FEVER AND CHILLS ON WEDNESDAY. SHE WAS STARTED ON BACTRIM DS 1 TABLET BID ON 07/21/2022. PATIENT REPORTS THAT REDNESS WORSENED AND THERE WAS AN INCREASE IN THE SIZE OF THE ABSCESS DESPITE COMPLIANCE WITH BACTRIM. SHE COMPLAINS OF HEADACHE AND PAIN TO THE RIGHT SIDE OF THE FACE. SHE DESCRIBES PAIN THROBBING AND RATES IT A 5/10. ON ARRIVAL TO THE HOSPITAL, VITALS WERE: 98.5-89-18-100%-110/74. LABS WERE OBTAINED. WBC 9.4, RBC 4.94, HGB 14.9, HCT 43.8, PLT COUNT 296, SODIUM 136, POTASSIUM 2.7, CHLORIDE 99, BUN 7, CREATININE 1.18, GLUCOSE 83, CALCIUM 8.6, TOTAL BILI 0.20, AST 24, ALT 23, ALK PHOS 118, TOTAL PROTEIN 7.8, ALBUMIN 3.8, MAGNESIUM 2.1. BLOOD AND WOUND CULTURES WERE SET UP. SHE WAS STARTED ON NORMAL SALINE AT 50 ML/HR, VANCOMYCIN 1G IV Q8H, ZOSYN 3.375G IV TID, TORADOL 30MG IV Q6H PRN, THE POTASSIUM AND MAGNESIUM PROTOCOLS, AND HER HOME MEDICATIONS WERE RESUMED. WE WILL CONSULT , GENERAL SURGEON, FOR POSSIBLE I&D. OTHERWISE, WE WILL FOLLOW-UP WITH AM LABS AND CONTINUE TO MONITOR. TIME SPENT ON CLINICAL ASSESSMENT, REVIWING LABS AND JOSE J GING, DECISION MAKING, AND DOCUMENTATION GREATER THAN 75 MINUTES. - Past Medical History Past Medical History: Anemia, Depression, Dyslipidemia, GERD, Hypertension Additional Medical History: INSOMNIA, ALLERGIC RHINITIS - Past Surgical History Surgical History: , Cholecystectomy, Hysterectomy - Family History Family Medical History: Diabetes Mellitus, Hypertension - Social History Does patient currently use any type of tobacco product: No Have you used tobacco products in the last 12 months: No Type of Tobacco Use: None Does any household member use tobacco: No Alcohol Use: None - Medications Home Medications: No Known Drug Allergies Allergy (Verified 01/18/18 07:29) CONTINUE taking the following medications bisoprolol 5 mg-hydrochlorothiazide 6.25 mg tablet 1 tab PO QDAY 07/23/22 [History] cyanocobalamin (vitamin B-12) 1,000 mcg/mL injection solution 1,000 mcg subcut PRN PRN 07/23/22 [History] dextroamphetamine-amphetamine 20 mg tablet 20 mg PO BID 07/23/22 [History] estradiol 0.5 mg tablet 0.5 mg PO HS 07/23/22 [History] loratadine 10 mg tablet 10 mg PO DAILY 07/23/22 [History] progesterone micronized 100 mg capsule 100 mg PO DAILY 07/23/22 [History] - Review of Systems Constitutional: Fever, Chills Eyes: No Symptoms Reported ENT: No Symptoms Reported Respiratory: No Symptoms Reported Cardiovascular: No Symptoms Reported Gastrointestinal: No Symptoms Reported Genitourinary: No Symptoms Reported Musculoskeletal: No Symptoms Reported Skin: Wound (RIGHT SIDE CHIN ABSCESS ) Neurological: No Symptoms Reported - Physical Exam Vital Signs: Temperature 97.9 F Pulse Rate [Left Brachial] 73 Respiratory Rate 18 Blood Pressure [Left Arm] 99/58 Blood Pressure [Right Arm] 154/85 O2 Sat by Pulse Oximetry 99 Oriented: Normal Eyes: Normal Ear: Normal Nose: Normal Throat: Normal Respiratory: Clear Throughout Cardiovascular: Normal : Normal Auscultation: Bowel Sounds: Normal Palpation: Normal Tenderness: Normal Skin: Pustular, Red, Tender, Hot, Wound (RIGHT SIDE CHIN ABSCESS, FACIAL CELLULITIS TO RIGHT SIDE FACE ) Musculoskeletal: Normal Psychiatric: Normal Mood Description: Calm Affect: Normal Speech Pattern: Clear - Assessment/Plan (1) Cellulitis of face Status: Acute Plan: NORMAL SALINE AT 50 ML/HR, VANCOMYCIN 1G IV Q8H, ZOSYN 3.375G IV TID, TORADOL 30MG IV Q6H PRN, THE POTASSIUM AND MAGNESIUM PROTOCOLS, AND HER HOME MEDICATIONS WERE RESUMED (2) Abscess of chin Status: Acute (3) Facial pain, acute Status: Acute (4) Hypokalemia Status: Acute (5) Hypomagnesemia Status: Acute (6) HTN (hypertension) Qualifiers: Hypertension type: primary hypertension Qualified Code(s): I10 - Essential (primary) hypertension Status: Chronic (7) GERD (gastroesophageal reflux disease) Qualifiers: Esophagitis presence: esophagitis presence not specified Qualified Code(s): K21.9 - Gastro-esophageal reflux disease without esophagitis Status: Chronic (8) MDD (major depressive disorder) Qualifiers: Major depression recurrence: recurrent Active/Remission status: remission status unspecified Qualified Code(s): F33.9 - Major depressive disorder, recurrent, unspecified Status: Chronic - Allergies Allergies/Adverse Reactions: Allergies Allergy/AdvReac Type Severity Reaction Status Date / Time No Known Drug Allergies Allergy Verified 01/18/18 07:29
[2022-07-24] MEDS ORDERED: PHARMACY COMMENT IV ONE (13:30)
[2022-07-24 14:00] LABS: CREATININE 1.23 mg/dL (0.55-1.02)
[2022-07-24 14:04] LABS: VANCOMYCIN,TROUGH 21.5 ug/mL (15-20)
[2022-07-24] MEDS: BACTROBAN TOPICAL OINT TOP SCH ×2 (14:13→20:30)
[2022-07-24] MEDS: HYDROGEN PEROXIDE 3% TOP SCH ×2 (14:13→20:30)
[2022-07-24] MEDS ORDERED: DESYREL PO SCH (21:00)
[2022-07-24] MEDS ORDERED: LIPITOR TAB 20 MG PO SCH (21:00)
[2022-07-24] MEDS ORDERED: FLEXERIL TAB 10 MG PO PRN (21:00)
[2022-07-24] MEDS ORDERED: ESTRACE PO SCH (21:00)
[2022-07-25] MEDS: ZOSYN VIAL 3.375 GRAMS 3.375 G in NS 100 ML IV 100 ML IV SCH ×2 (05:07→14:23)
[2022-07-25] MEDS: NS 1,000 ML IV 1,000 ML IV SCH (05:18)
[2022-07-25 05:51] LABS: BASOPHILS % (AUTO) 0.9 % (0.2-1.0); EOSINOPHILS % (AUTO) 0.8 % (0.9-2.9); HEMATOCRIT 33.9 % (36.0-47.0); HEMOGLOBIN 11.6 g/dL (12.0-16.0); LYMPHOCYTES # (AUTO) 1.9 X10^3/uL (1.3-2.9); LYMPHOCYTES % (AUTO) 52.1 % (21.0-51.0); MEAN CORPUSCULAR HEMOGLOBIN 30.5 pg (27.0-34.0); MEAN CORPUSCULAR HGB CONC 34.3 g/dL (33.0-35.0); MEAN CORPUSCULAR VOLUME 88.9 fL (80.0-100.0); MEAN PLATELET VOLUME 8.2 fL (7.4-11.0); MONOCYTES # (AUTO) 0.3 x10^3/uL (0.3-0.8); MONOCYTES % (AUTO) 7.1 % (0.0-13.0); NEUTROPHILS # (AUTO) 1.5 x10^3/uL (2.2-4.8); NEUTROPHILS % (AUTO) 39.1 % (42.0-75.0); RED BLOOD COUNT 3.82 X10^6/uL (3.5-5.4); RED CELL DISTRIBUTION WIDTH 13.4 % (11.6-16.5); WHITE BLOOD COUNT 3.7 X10^3/uL (3.6-10.0)
[2022-07-25 05:58] LABS: ALANINE AMINOTRANSFERASE 16 Units/L (12-78); ALBUMIN 2.5 g/dL (3.4-5.0); ALKALINE PHOSPHATASE 75 Units/L (46-116); ASPARTATE AMINO TRANSFERASE 14 Units/L (15-37); BLOOD UREA NITROGEN 5 mg/dL (7-18); CALCIUM 7.5 mg/dL (8.5-10.1); CARBON DIOXIDE 28.1 mmol/L (21-32); CHLORIDE 108 mmol/L (98-107); COR CA(FOR HYPOALB) 8.7 mg/dL (8.5-10.1); CREATININE 0.92 mg/dL (0.55-1.02); SODIUM 140 mmol/L (136-145); TOTAL PROTEIN 5.3 g/dL (6.4-8.2); eGFR NON BLACK RACES > 60 (>60)
[2022-07-25] MEDS: PriLOSEC PO SCH (08:38)
[2022-07-25] MEDS: VANCOMYCIN IV *PREMIX 1 G/200 ML BAG 1 G/200 ML PIGGYBACK IV SCH (08:38)
[2022-07-25] MEDS: CYMBALTA PO SCH (08:38)
[2022-07-25] MEDS: CLARITIN PO SCH (08:39)
[2022-07-25] MEDS: HYDROGEN PEROXIDE 3% TOP SCH (08:39)
[2022-07-25] MEDS: BACTROBAN TOPICAL OINT TOP SCH (08:47)
--- NOTE | 2022-07-25 11:40 | PCM.PROG ---
Progress Note Progress Note for Day of Date of Exam: 07/25/22 Subjective Subjective: Patient seen at bedside, no acute events overnight. She is being treated for facial cellulitis/abscess. Patient feels better this morning, reports improvement in facial swelling and redness. Dr Root was consulted yesterday and recommended no surgical intervention at this time. Denies fever or chills. Patient reports swelling in her hands and arms from the IVF. Wound Cx: staph aureus Labs reviewed Plan: Continue Zosyn, DC Vancomycin. Stop IVF Follow Dr Root's recommendations and wound care. Continue home medications. Monitor AM labs/imaging. Past Medical Family Social History Allergies: Allergies No Known Drug Allergies Allergy (Verified 01/18/18 07:29) Vital Signs and I&O's Vital Signs: Temperature 98.0 F Pulse Rate [Left Brachial] 86 Respiratory Rate 20 Blood Pressure [Left Arm] 101/64 Blood Pressure [Right Arm] 154/85 O2 Sat by Pulse Oximetry 98 Intake and Output: Intake & Output 07/22/22 07/23/22 07/24/22 07/25/22 23:59 23:59 23:59 23:59 Intake Total 520 / 520 2831 / 2831 655 / 655 Balance 520 / 520 2831 / 2831 655 / 655 Physical Exam Oriented: Normal Eyes: Normal Ear: Normal Nose: Normal Throat: Normal Cardiovascular: Normal Auscultation: Bowel Sounds: Normal Tenderness: Normal Skin: Pustular, Red, Tender and Wound (RIGHT SIDE CHIN ABSCESS, FACIAL CELLULITIS TO RIGHT SIDE FACE ) Musculoskeletal: Normal Psychiatric: Normal Mood Description: Calm Affect: Normal Speech Pattern: Clear and Appropriate Laboratory and Diagnostics Result Diagrams: 07/25/22 05:25 07/25/22 05:25 Labs: 07/23/22 14:10 Face Wound Gram Stain - Final 07/23/22 14:10 Face Wound Culture - Final Staphylococcus Aureus Laboratory WBC 3.7 X10^3/uL (3.6-10.0) 07/25/22 05:25 RBC 3.82 X10^6/uL (3.5-5.4) 07/25/22 05:25 Hgb 11.6 g/dL (12.0-16.0) L 07/25/22 05:25 Hct 33.9 % (36.0-47.0) L 07/25/22 05:25 MCV 88.9 fL (80.0-100.0) 07/25/22 05:25 MCH 30.5 pg (27.0-34.0) 07/25/22 05:25 MCHC 34.3 g/dL (33.0-35.0) 07/25/22 05:25 RDW 13.4 % (11.6-16.5) 07/25/22 05:25 Plt Count 235 X10^3/uL (150.0-450.0) 07/25/22 05:25 MPV 8.2 fL (7.4-11.0) 07/25/22 05:25 Neut % (Auto) 39.1 % (42.0-75.0) L 07/25/22 05:25 Lymph % (Auto) 52.1 % (21.0-51.0) H 07/25/22 05:25 [place] % (Auto) 7.1 % (0.0-13.0) 07/25/22 05:25 Eos % (Auto) 0.8 % (0.9-2.9) L 07/25/22 05:25 Baso % (Auto) 0.9 % (0.2-1.0) 07/25/22 05:25 Neut # (Auto) 1.5 x10^3/uL (2.2-4.8) L 07/25/22 05:25 Lymph # (Auto) 1.9 X10^3/uL (1.3-2.9) 07/25/22 05:25 [place] # (Auto) 0.3 x10^3/uL (0.3-0.8) 07/25/22 05:25 Eos # (Auto) 0.0 x10^3/uL (0.0-0.2) 07/25/22 05:25 Baso # (Auto) 0.0 X10^3/uL (0.0-0.1) 07/25/22 05:25 Absolute Nucleated RBC 0.1 /100WBC 07/25/22 05:25 Sodium 140 mmol/L (136-145) 07/25/22 05:25 Corrected Sodium TNP 07/25/22 05:25 Potassium 4.0 mmol/L (3.5-5.1) 07/25/22 05:25 Chloride 108 mmol/L (98-107) H 07/25/22 05:25 Carbon Dioxide 28.1 mmol/L (21-32) 07/25/22 05:25 BUN 5 mg/dL (7-18) L 07/25/22 05:25 Creatinine 0.92 mg/dL (0.55-1.02) 07/25/22 05:25 Est GFR (MDRD) Af Amer > 60 (>60) 07/25/22 05:25 Est GFR (MDRD) Non-Af > 60 (>60) 07/25/22 05:25 Glucose 86 mg/dL (65-99) 07/25/22 05:25 Calcium 7.5 mg/dL (8.5-10.1) L 07/25/22 05:25 Corrected Calcium 8.7 mg/dL (8.5-10.1) 07/25/22 05:25 Magnesium 2.1 mg/dL (2.0-2.9) 07/23/22 13:30 Total Bilirubin 0.20 mg/dL (0.2-1.0) 07/25/22 05:25 AST 14 Units/L (15-37) L 07/25/22 05:25 ALT 16 Units/L (12-78) 07/25/22 05:25 Alkaline Phosphatase 75 Units/L (46-116) 07/25/22 05:25 Total Protein 5.3 g/dL (6.4-8.2) L 07/25/22 05:25 Albumin 2.5 g/dL (3.4-5.0) L 07/25/22 05:25 Globulin 2.8 g/dL (2.5-4.5) 07/25/22 05:25 Albumin/Globulin Ratio 0.9 Ratio (1.1-2.1) L 07/25/22 05:25 Vancomycin Trough 21.5 ug/mL (15-20) H* 07/24/22 13:08 Plan (1) Cellulitis of face: Status: Acute (2) Abscess of chin: Status: Acute (3) Facial pain, acute: Status: Acute (4) Hypokalemia: Status: Acute (5) Hypomagnesemia: Status: Acute (6) HTN (hypertension): Status: Chronic Qualifiers: Hypertension type: primary hypertension Qualified Code(s): I10 - Essential (primary) hypertension (7) GERD (gastroesophageal reflux disease): Status: Chronic Qualifiers: Esophagitis presence: esophagitis presence not specified Qualified Cod e(s): K21.9 - Gastro-esophageal reflux disease without esophagitis (8) MDD (major depressive disorder): Status: Chronic Qualifiers: Active/Remission status: remission status unspecified Major depression recurrence: recurrent Qualified Code(s): F33.9 - Major depressive disorder, recurrent, unspecified
[2022-07-25 12:42] VITALS: BP 120/78
--- NOTE | 2022-07-25 15:19 | DR.PROGNOT ---
Hospital Progress Notes - Progress Note for Day of: Progress Note Date: 07/25/22 - Chief Complaint Chief Complaint: less pain with mild drainage . C&S showed Staph A sensitive to all . afebrile .. - Past Medical Family Social History Past Med/Fam/Surg Hx: No changes since H&P Allergies: Allergies No Known Drug Allergies Allergy (Verified 01/18/18 07:29) - Review Of Systems ROS: No change since H&P - Vital Signs Vital Signs: Temperature 97.7 F Pulse Rate [Left Brachial] 78 Respiratory Rate 20 Blood Pressure [Left Arm] 120/78 Blood Pressure [Right Arm] 154/85 O2 Sat by Pulse Oximetry 99 - Physical Exam Oriented: Normal Eyes: Normal Ear: Normal Nose: Normal Throat: Normal Respiratory: Normal Cardiovascular: Normal : Normal GI:Auscultation: Normal GI:Palpation: Normal GI: Tenderness: Normal Skin: Pustular, Red, Tender, Wound (3 x 3 cm are3a of erythema and localized ce llulitis .. no necrosis or abscess now .) Musculoskeletal: Normal Psychiatric: Normal Mood Description: Calm Affect: Normal Speech Pattern: Clear, Appropriate - Laboratory and Diagnostics Result Diagrams: 07/25/22 05:25 07/25/22 05:25 Labs: 07/23/22 13:30 Blood Blood Culture - Preliminary 07/23/22 13:30 Blood Blood Culture - Preliminary 07/23/22 14:10 Face Wound Gram Stain - Final 07/23/22 14:10 Face Wound Culture - Final Staphylococcus Aureus Laboratory WBC 3.7 X10^3/uL (3.6-10.0) 07/25/22 05:25 RBC 3.82 X10^6/uL (3.5-5.4) 07/25/22 05:25 Hgb 11.6 g/dL (12.0-16.0) L 07/25/22 05:25 Hct 33.9 % (36.0-47.0) L 07/25/22 05:25 MCV 88.9 fL (80.0-100.0) 07/25/22 05:25 MCH 30.5 pg (27.0-34.0) 07/25/22 05:25 MCHC 34.3 g/dL (33.0-35.0) 07/25/22 05:25 RDW 13.4 % (11.6-16.5) 07/25/22 05:25 Plt Count 235 X10^3/uL (150.0-450.0) 07/25/22 05:25 MPV 8.2 fL (7.4-11.0) 07/25/22 05:25 Neut % (Auto) 39.1 % (42.0-75.0) L 07/25/22 05:25 Lymph % (Auto) 52.1 % (21.0-51.0) H 07/25/22 05:25 [place] % (Auto) 7.1 % (0.0-13.0) 07/25/22 05:25 Eos % (Auto) 0.8 % (0.9-2.9) L 07/25/22 05:25 Baso % (Auto) 0.9 % (0.2-1.0) 07/25/22 05:25 Neut # (Auto) 1.5 x10^3/uL (2.2-4.8) L 07/25/22 05:25 Lymph # (Auto) 1.9 X10^3/uL (1.3-2.9) 07/25/22 05:25 [place] # (Auto) 0.3 x10^3/uL (0.3-0.8) 07/25/22 05:25 Eos # (Auto) 0.0 x10^3/uL (0.0-0.2) 07/25/22 05:25 Baso # (Auto) 0.0 X10^3/uL (0.0-0.1) 07/25/22 05:25 Absolute Nucleated RBC 0.1 /100WBC 07/25/22 05:25 Sodium 140 mmol/L (136-145) 07/25/22 05:25 Corrected Sodium TNP 07/25/22 05:25 Potassium 4.0 mmol/L (3.5-5.1) 07/25/22 05:25 Chloride 108 mmol/L (98-107) H 07/25/22 05:25 Carbon Dioxide 28.1 mmol/L (21-32) 07/25/22 05:25 BUN 5 mg/dL (7-18) L 07/25/22 05:25 Creatinine 0.92 mg/dL (0.55-1.02) 07/25/22 05:25 Est GFR (MDRD) Af Amer > 60 (>60) 07/25/22 05:25 Est GFR (MDRD) Non-Af > 60 (>60) 07/25/22 05:25 Glucose 86 mg/dL (65-99) 07/25/22 05:25 Calcium 7.5 mg/dL (8.5-10.1) L 07/25/22 05:25 Corrected Calcium 8.7 mg/dL (8.5-10.1) 07/25/22 05:25 Magnesium 2.1 mg/dL (2.0-2.9) 07/23/22 13:30 Total Bilirubin 0.20 mg/dL (0.2-1.0) 07/25/22 05:25 AST 14 Units/L (15-37) L 07/25/22 05:25 ALT 16 Units/L (12-78) 07/25/22 05:25 Alkaline Phosphatase 75 Units/L (46-116) 07/25/22 05:25 Total Protein 5.3 g/dL (6.4-8.2) L 07/25/22 05:25 Albumin 2.5 g/dL (3.4-5.0) L 07/25/22 05:25 Globulin 2.8 g/dL (2.5-4.5) 07/25/22 05:25 Albumin/Globulin Ratio 0.9 Ratio (1.1-2.1) L 07/25/22 05:25 Vancomycin Trough 21.5 ug/mL (15-20) H* 07/24/22 13:08 - Assessment and Plan 4: facial cellulitis with Staph A infection .. could be d/c on Bactrim DS BID .. Clindamycin 300 BID. Bactroban local BID . f/u in 4 days .. - Problem Patient Problems: Patient Problems Cellulitis of face (Acute) L03.211 Facial pain, acute (Acute) R51.9 Abscess of chin (Acute) L02.01 Hypokalemia (Acute) E87.6 Hypomagnesemia (Acute) E83.42 HTN (hypertension) (Chronic) I10 GERD (gastroesophageal reflux disease) (Chronic) K21.9 MDD (major depressive disorder) (Chronic) F32.9
[2022-07-26] MEDS ORDERED: PHARMACY COMMENT IV ONE (08:30)
--- NOTE | 2022-07-26 12:21 | W.DIS.FURT ---
Summary of Discharge Admission Diagnosis Patient Problems (Updated 07/24/22 @ 11:03 by Rory Gibson) Cellulitis of face (Acute) L03.211 Facial pain, acute (Acute) R51.9 Abscess of chin (Acute) L02.01 Hypokalemia (Acute) E87.6 Hypomagnesemia (Acute) E83.42 HTN (hypertension) (Chronic) I10 GERD (gastroesophageal reflux disease) (Chronic) K21.9 MDD (major depressive disorder) (Chronic) F32.9 Vital Signs: Vital Signs (72 hours) 07/23/22 14:09 07/23/22 14:17 07/23/22 13:20 Temperature 98.5 F Pulse Rate [Left Brachial] 89 Respiratory Rate 18 18 Blood Pressure [Left Arm] 110/74 O2 Sat by Pulse Oximetry 100 Oxygen Delivery Method Room Air Room Air 07/23/22 15:17 07/23/22 16:00 07/23/22 16:23 Temperature 97.9 F Pulse Rate [Left Brachial] 86 Respiratory Rate 18 18 18 Blood Pressure [Left Arm] 107/67 O2 Sat by Pulse Oximetry 98 Oxygen Delivery Method Room Air 07/23/22 16:53 07/23/22 20:00 07/23/22 19:00 Temperature 97.8 F Pulse Rate [Left Brachial] 84 Respiratory Rate 18 20 Blood Pressure [Left Arm] 93/55 O2 Sat by Pulse Oximetry 97 Oxygen Delivery Method Room Air Room Air 07/23/22 23:49 07/24/22 03:27 07/24/22 05:06 Temperature 98.7 F 97.7 F Pulse Rate [Left Brachial] 77 86 Respiratory Rate 20 18 18 Blood Pressure [Left Arm] 107/68 90/55 O2 Sat by Pulse Oximetry 99 98 Oxygen Delivery Method Room Air Room Air 07/24/22 05:36 07/24/22 07:00 07/24/22 08:00 Temperature 97.9 F Pulse Rate [Left Brachial] 73 Respiratory Rate 18 18 Blood Pressure [Left Arm] 99/58 O2 Sat by Pulse Oximetry 99 Oxygen Delivery Method Room Air Room Air 07/24/22 12:00 07/24/22 16:00 07/24/22 19:38 Temperature 97.8 F 98.6 F 97.7 F Pulse Rate [Left Brachial] 71 83 84 Respiratory Rate 18 13 18 Blood Pressure [Left Arm] 104/62 106/58 103/63 O2 Sat by Pulse Oximetry 99 99 97 Oxygen Delivery Method Room Air Room Air 07/24/22 19:00 07/24/22 22:42 07/24/22 23:44 Temperature 97.7 F Pulse Rate [Left Brachial] 79 Respiratory Rate 18 18 Blood Pressure [Left Arm] 94/51 O2 Sat by Pulse Oximetry 95 Oxygen Delivery Method Room Air 07/24/22 23:12 07/25/22 04:00 07/25/22 08:00 Temperature 97.7 F 98.0 F Pulse Rate [Left Brachial] 76 86 Respiratory Rate 18 18 20 Blood Pressure [Left Arm] 106/62 101/64 O2 Sat by Pulse Oximetry 95 98 Oxygen Delivery Method Room Air 07/25/22 07:00 07/25/22 12:00 Temperature 97.7 F Pulse Rate [Left Brachial] 78 Respiratory Rate 20 Blood Pressure [Left Arm] 120/78 O2 Sat by Pulse Oximetry 99 Oxygen Delivery Method Room Air Room Air Labs: Laboratory Last Values WBC 3.7 X10^3/uL (3.6-10.0) 07/25/22 05:25 RBC 3.82 X10^6/uL (3.5-5.4) 07/25/22 05:25 Hgb 11.6 g/dL (12.0-16.0) L 07/25/22 05:25 Hct 33.9 % (36.0-47.0) L 07/25/22 05:25 MCV 88.9 fL (80.0-100.0) 07/25/22 05:25 MCH 30.5 pg (27.0-34.0) 07/25/22 05:25 MCHC 34.3 g/dL (33.0-35.0) 07/25/22 05:25 RDW 13.4 % (11.6-16.5) 07/25/22 05:25 Plt Count 235 X10^3/uL (150.0-450.0) 07/25/22 05:25 MPV 8.2 fL (7.4-11.0) 07/25/22 05:25 Neut % (Auto) 39.1 % (42.0-75.0) L 07/25/22 05:25 Lymph % (Auto) 52.1 % (21.0-51.0) H 07/25/22 05:25 [place] % (Auto) 7.1 % (0.0-13.0) 07/25/22 05:25 Eos % (Auto) 0.8 % (0.9-2.9) L 07/25/22 05:25 Baso % (Auto) 0.9 % (0.2-1.0) 07/25/22 05:25 Neut # (Auto) 1.5 x10^3/uL (2.2-4.8) L 07/25/22 05:25 Lymph # (Auto) 1.9 X10^3/uL (1.3-2.9) 07/25/22 05:25 [place] # (Auto) 0.3 x10^3/uL (0.3-0.8) 07/25/22 05:25 Eos # (Auto) 0.0 x10^3/uL (0.0-0.2) 07/25/22 05:25 Baso # (Auto) 0.0 X10^3/uL (0.0-0.1) 07/25/22 05:25 Absolute Nucleated RBC 0.1 /100WBC 07/25/22 05:25 Sodium 140 mmol/L (136-145) 07/25/22 05:25 Corrected Sodium TNP 07/25/22 05:25 Potassium 4.0 mmol/L (3.5-5.1) 07/25/22 05:25 Chloride 108 mmol/L (98-107) H 07/25/22 05:25 Carbon Dioxide 28.1 mmol/L (21-32) 07/25/22 05:25 BUN 5 mg/dL (7-18) L 07/25/22 05:25 Creatinine 0.92 mg/dL (0.55-1.02) 07/25/22 05:25 Est GFR (MDRD) Af Amer > 60 (>60) 07/25/22 05:25 Est GFR (MDRD) Non-Af > 60 (>60) 07/25/22 05:25 Glucose 86 mg/dL (65-99) 07/25/22 05:25 Calcium 7.5 mg/dL (8.5-10.1) L 07/25/22 05:25 Corrected Calcium 8.7 mg/dL (8.5-10.1) 07/25/22 05:25 Magnesium 2.1 mg/dL (2.0-2.9) 07/23/22 13:30 Total Bilirubin 0.20 mg/dL (0.2-1.0) 07/25/22 05:25 AST 14 Units/L (15-37) L 07/25/22 05:25 ALT 16 Units/L (12-78) 07/25/22 05:25 Alkaline Phosphatase 75 Units/L (46-116) 07/25/22 05:25 Total Protein 5.3 g/dL (6.4-8.2) L 07/25/22 05:25 Albumin 2.5 g/dL (3.4-5.0) L 07/25/22 05:25 Globulin 2.8 g/dL (2.5-4.5) 07/25/22 05:25 Albumin/Globulin Ratio 0.9 Ratio (1.1-2.1) L 07/25/22 05:25 Vancomycin Trough 21.5 ug/mL (15-20) H* 07/24/22 13:08 Reason For Visit: FACIAL CELLULITIS/ABCESS Discharge Diagnosis All Active Problems (Updated 07/24/22 @ 11:03 by Rory Gibson) Cellulitis of face (Acute) Facial pain, acute (Acute) Abscess of chin (Acute) Hypokalemia (Acute) Hypomagnesemia (Acute) HTN (hypertension) (Chronic) GERD (gastroesophageal reflux disease) (Chronic) MDD (major depressive disorder) (Chronic) Plan of Treatment: Continue with present treatment and follow up plan. Pt is to keep follow up appointment as instructed and take medications as ordered. Discharge Medications Discharge Medications: No Known Drug Allergies Allergy (Verified 01/18/18 07:29) CONTINUE taking the following medications bisoprolol 5 mg-hydrochlorothiazide 6.25 mg tablet 1 tab PO QDAY 07/23/22 [History] cyanocobalamin (vitamin B-12) 1,000 mcg/mL injection solution 1,000 mcg subcut PRN PRN 07/23/22 [History] dextroamphetamine-amphetamine 20 mg tablet 20 mg PO BID 07/23/22 [History] estradiol 0.5 mg tablet 0.5 mg PO HS 07/23/22 [History] loratadine 10 mg tablet 10 mg PO DAILY 07/23/22 [History] progesterone micronized 100 mg capsule 100 mg PO DAILY 07/23/22 [History] New Prescriptions clindamycin HCl 300 mg capsule 300 mg PO Q6H 10 days #40 caps 07/25/22 [Rx] sulfamethoxazole 800 mg-trimethoprim 160 mg tablet (Bactrim DS) 1 tab PO Q12H 10 days #20 tabs 07/25/22 [Rx] Discharge Plan Discharge Plan Patient Disposition: 01 HOME, SELF-CARE Condition: Stable Health Concerns: Post Hospitalization: new medications and changes needed to prevent readmission or further decline. Pt educated and given instructions on all concerns. Plan of Treatment: Continue with present treatment and follow up plan. Pt is to keep follow up appointment as instructed and take medications as ordered. Prescriptions: New clindamycin HCl 300 mg Capsule 300 mg PO Q6H 10 Days Qty: 40 0RF sulfamethoxazole-trimethoprim [Bactrim DS] 800-160 mg Tablet 1 tab PO Q12H 10 Days Qty: 20 0RF Continued omeprazole 20 MG capsule,delayed release(DR/EC) 40 mg PO DAILY cyclobenzaprine 10 mg Tablet 10 mg PO HS PRN atorvastatin 20 mg Tablet 20 mg PO HS trazodone 100 mg Tablet 100 mg PO HS duloxetine [Cymbalta] 30 mg Capsule,Delayed Release(Dr/Ec) 60 mg PO DAILY Rx Instructions: Take with 60mg Duloxetine to equal 90mg sulfamethoxazole-trimethoprim [Bactrim DS] 800-160 mg Tablet 1 tab PO Q12H Qty: 20 0RF bisoprolol-hydrochlorothiazide 5-6.25 mg tablet 1 tab PO QDAY dextroamphetamine-amphetamine 20 mg tablet 20 mg PO BID estradiol 0.5 mg Tablet 0.5 mg PO HS progesterone micronized 100 mg Capsule 100 mg PO DAILY cyanocobalamin (vitamin B-12) 1,000 mcg/mL Solution 1,000 mcg subcut PRN PRN Rx Instructions: twice a week loratadine 10 mg Tablet 10 mg PO DAILY Orders to Discharge Patient Discharge Orders: Discharge (Routine); Ordered 07/25/22 Ordered By: OPAL BENAVIDEZ Follow ups/Referrals Follow ups/Referrals: Rory Gibson [Primary Care Provider] - 1 WEEK OPAL BENAVIDEZ [STAFF PHYSICIAN] - 07/28/22 Instructions Instructions: Cellulitis, Adult, Clindamycin capsules, Wound Care, Adult, Mupirocin skin cream or ointment, Sulfamethoxazole; Trimethoprim, SMX-TMP tablets Activity Restrictions/Additional Instructions: Clean wound with hydrogen peroxide and then apply Bactroban to wound twice a day. Follow up with Dr. Grajeda on Thursday July 28, 2022. Stand Alone Forms: Excuse From Work or School
== END 2022-07-25 15:30 | disposition home or self-care (01) ==
LOC: MED/SURG
PROVIDERS: ADMIT Internal Medicine; ATTEND Internal Medicine
DX: B95.61 Methicillin susceptible Staphylococcus aureus infection as the cause of diseases classified elsewhere; L02.01 Cutaneous abscess of face; L03.211 Cellulitis of face; R51.9 Headache, unspecified; K21.9 Gastro-esophageal reflux disease without esophagitis; F33.9 Major depressive disorder, recurrent, unspecified; I10 Essential (primary) hypertension; E83.42 Hypomagnesemia; E87.6 Hypokalemia